=== PATIENT | female | born 1955 | race Caucasian/White ===

== ENCOUNTER → 2023-08-03 08:52 | Outpatient (REF) | payer BC, SELFPAY | LOC: WDC 08:52 | PROVIDERS: ATTENDING PHYSICIAN Surgery; FAMILY PHYSICIAN Family Medicine | DX: Z12.31 Encounter for screening mammogram for malignant neoplasm of breast (principal) | CPT/HCPCS: 77063; 77067 ==

== ENCOUNTER → 2023-10-21 11:00 | Outpatient (REF) | payer BC, SELFPAY | LOC: WDC 11:00 | PROVIDERS: ATTENDING PHYSICIAN Surgery; FAMILY PHYSICIAN Family Medicine | DX: R92.2 Inconclusive mammogram (principal) | CPT/HCPCS: 76641 ==

== ENCOUNTER → 2023-12-18 08:56 | Outpatient (REF) | payer BC, SELFPAY | LOC: RAD 08:56 | PROVIDERS: ATTENDING PHYSICIAN Obstetrics & Gynecology; FAMILY PHYSICIAN Family Medicine | DX: Z78.0 Asymptomatic menopausal state (principal); Z80.41 Family history of malignant neoplasm of ovary | CPT/HCPCS: 76830; 76856; 77080 ==

== ENCOUNTER → 2024-07-22 09:20 | Outpatient (REF) | payer BC, SELFPAY | LOC: RAD 09:20 | PROVIDERS: ATTENDING PHYSICIAN Family Medicine | DX: E04.1 Nontoxic single thyroid nodule (principal) | CPT/HCPCS: 76536 ==

== ENCOUNTER → 2024-08-05 08:01 | Outpatient (REF) | payer BC, SELFPAY | LOC: WDC 08:01 | PROVIDERS: ATTENDING PHYSICIAN Obstetrics & Gynecology; FAMILY PHYSICIAN Family Medicine | DX: Z12.31 Encounter for screening mammogram for malignant neoplasm of breast (principal) | CPT/HCPCS: 77063; 77067 ==

== ENCOUNTER → 2024-10-05 09:24 | Outpatient (REF) | payer BC, SELFPAY ==
[2024-10-05 09:45] VITALS: BP 139/92; BP_SYST 93
== END ==
LOC: RADI 09:24
PROVIDERS: ATTENDING PHYSICIAN Nurse Practitioner Family; FAMILY PHYSICIAN Family Medicine
DX: E04.1 Nontoxic single thyroid nodule (principal)
CPT/HCPCS: 10005; 88173

== ENCOUNTER → 2025-02-22 08:54 | Outpatient (REF) | payer BC, SELFPAY | LOC: DHVS 08:54 | PROVIDERS: ATTENDING PHYSICIAN Internal Medicine Cardiovascular Disease; FAMILY PHYSICIAN Family Medicine | DX: I71.43 Infrarenal abdominal aortic aneurysm, without rupture (principal); I65.23 Occlusion and stenosis of bilateral carotid arteries | CPT/HCPCS: 76770; 93880 ==

== ENCOUNTER → 2025-02-25 09:03 | Outpatient (REF) | payer BC, SELFPAY | LOC: RCS 09:03 | PROVIDERS: ATTENDING PHYSICIAN Internal Medicine Cardiovascular Disease; FAMILY PHYSICIAN Family Medicine | DX: I10 Essential (primary) hypertension (principal) | CPT/HCPCS: 93306 ==